=== PATIENT | female | born 1985 | race American Indian/Alaskan Native ===

== ENCOUNTER 2019-04-30 06:00 | Inpatient (IN) | payer OTHER ==
[~2019-04-30 06:00] MED LIST: EPINEPHrine/PF (1:1,000) 1 MG/1 ML INJ SUB-Q ONE; LIDOCAINE (1%) 10 MG/1 ML VIAL 20 ML MDV INFILTRATI ONE; SODIUM CHLORIDE 0.9% 1000 ML IV SOLN IJ ONE; ceFAZolin/Water 2 GM/20 ML 2 GM/20 ML SYRINGE IV NR
[2019-04-30] MEDS ORDERED: BACTERIOSTATIC SODIUM CHLORIDE 0.9% 30 ML VIAL INFILTRATI ONE (06:32)
[2019-04-30] MEDS ORDERED: LIDOCAINE 1%/EPINEPHRINE 1:100,000 VIAL (20 ML) INFILTRATI ONE ×3 (07:01→08:25)
--- NOTE | 2019-04-30 07:12 | Anesthesia Day of Surgery ---
Anesthesia Day of Surgery - Day of Surgery Patient Examined: Yes Patient H&P Reviewed: Yes Patient is NPO: Yes
[2019-04-30] MEDS ORDERED: ONDANSETRON 4 MG/2 ML INJ IV PRN ×2 (07:15→17:12)
[2019-04-30] MEDS ORDERED: HYDROmorphone 1 MG/1 ML INJ IV PRN (07:15)
--- NOTE | 2019-04-30 07:15 | Anesthesia Consultation ---
Anesthesia Consult and Med Hx Date of service: 04/30/19 - Airway Anesthetic Teeth Evaluation: Good (Braces) ROM Head & Neck: Adequate Mental/Hyoid Distance: Adequate Mallampati Class: Class II Intubation Access Assessment: Good - Pre-Operative Health Status ASA Pre-Surgery Classification: ASA2 Proposed Anesthetic Plan: General - Central Nervous System Hx Psychiatric Problems: No - Other Systems Hx Alcohol Use: Yes (SOCIALLY) Hx Substance Use: No Hx Cancer: No Hx Obesity: Yes
[2019-04-30] MEDS ORDERED: MAGNESIUM OXIDE 400 MG TAB PO NR (07:17)
[2019-04-30] MEDS ORDERED: ACETAMINOPHEN 500 MG TAB PO NR (07:17)
[2019-04-30] MEDS ORDERED: SODIUM CHLORIDE 0.9% 1000 ML 1,000 ML, EPINEPHrine/PF 1:1,000 1 MG, LIDOCAINE 1% 20 mL ... IJ ONE (07:30)
[2019-04-30] MEDS ORDERED: ENOXAPARIN 40 MG/0.4 ML INJ SUB-Q NR (07:30)
[2019-04-30] MEDS ORDERED: LIDOCAINE MPF (2%) 20 MG/1 ML VIAL 5 ML ONE (07:39)
[2019-04-30] MEDS ORDERED: PHENYLEPHRINE/NS 1,000 MCG/10 ML SYRINGE (OR USE) IV ONE (07:39)
[2019-04-30] MEDS ORDERED: dexAMETHasone 20 MG/5 ML VIAL ONE (07:39)
[2019-04-30] MEDS ORDERED: NEOSTIGMINE 10MG/10 ML INJ MDV ONE (07:39)
[2019-04-30] MEDS ORDERED: ROCURONIUM 50 MG/5 ML INJ IV ONE (07:39)
[2019-04-30] MEDS ORDERED: GLYCOPYRROLATE 0.4 MG/2 ML INJ ONE (07:39)
[2019-04-30] MEDS ORDERED: ONDANSETRON 4 MG/2 ML INJ ONE (07:39)
[2019-04-30] MEDS ORDERED: fentaNYL 250 MCG/5 ML INJ ONE (07:40)
[2019-04-30] MEDS ORDERED: PROPOFOL 200 MG/20 ML VIAL IV ONE (07:40)
[2019-04-30] MEDS: LACTATED RINGERS 1,000 ML IV SCH (07:45)
[2019-04-30] MEDS ORDERED: CELECOXIB 200 MG CAP PO NR (08:00)
[2019-04-30] MEDS ORDERED: MIDAZOLAM 2 MG/2 ML INJ IV NR (08:00)
[2019-04-30] MEDS ORDERED: GABAPENTIN 300 MG CAP PO NR (08:00)
[2019-04-30] MEDS ORDERED: SODIUM CHLORIDE 0.9% 1000 ML IV SOLN IJ ONE (08:30)
[2019-04-30] MEDS ORDERED: LIDOCAINE (1%) 10 MG/1 ML VIAL 20 ML MDV INFILTRATI ONE (08:30)
[2019-04-30] MEDS ORDERED: EPINEPHrine/PF (1:1,000) 1 MG/1 ML INJ SUB-Q ONE (08:30)
[2019-04-30] MEDS ORDERED: fentaNYL 100 MCG/2 ML INJ ONE ×5 (10:24→15:24)
[2019-04-30] MEDS ORDERED: ceFAZolin 1 GM VIAL ONE (11:59)
[2019-04-30] MEDS ORDERED: PHENYLEPHRINE 10 MG/1 ML INJ SDV IV ONE (13:00)
[2019-04-30] MEDS ORDERED: PHENYLEPHRINE 10 MG/1 ML INJ SDV ONE (14:43)
[2019-04-30] MEDS ORDERED: ESMOLOL 100 MG/10 ML INJ IV ONE (15:52)
[2019-04-30] MEDS ORDERED: ALBUTEROL 2.5 MG/3 ML NEBU IH PRN (17:12)
[2019-04-30] MEDS ORDERED: ACETAMINOPHEN 325 MG TAB PO PRN (17:12)
--- NOTE | 2019-04-30 17:15 | History and Physical Report ---
History of Present Illness Chief complaint: My heart is beating fast History of present illness: 33 YO Female with Obesity Hypoventilation admitted directly postoperatively. Pt found to have shortness of breath, tachycardia with a heart rate in the 120's. Pt seen and evaluated in the CT scan suite after undergoing CTA chest. Pt denies fever, chills, CP, Palpitations, Syncope, or recent ill contacts. Pt found to have SIRS with a leukocyte count of 25, RENÉ, as well as Bilateral Lower lobe Pneumonia on CTA of the chest. Pt admitted to medical floor, and initiated on Pneumonia protocol, as well as treated with Flagyl therapy to treat for possible aspiration pneumonia. No prior admission for review. No medication listed at time of admission for reconciliation. Past History Past Medical History: other (see HPI) Past Surgical History: Other (Plastic surgery) Social history: single. denies: smoking, alcohol abuse, prescription drug abuse Family history: hypertension Medications and Allergies Allergies Allergy/AdvReac Type Severity Reaction Status Date / Time milk Allergy Itching Verified 04/29/19 09:43 Home Medications Medication Instructions Recorded Confirmed Last Taken Type Multivit with Calcium,Iron,Min 1 each PO DAILY 04/29/19 04/29/19 Unknown History [One Daily Women's] [place]-3 Fatty Acids/Fish Oil [Fish 1 each PO DAILY 04/29/19 04/29/19 04/22/19 History Oil] Active Meds: Active Medications Acetaminophen (Tylenol) 650 mg PO Q4H PRN PRN Reason: Pain MILD(1-3)/Fever >100.5/RAMIREZ Albuterol (Proventil) 2.5 mg IH Q4HRT PRN PRN Reason: Shortness Of Breath Hydromorphone HCl (Dilaudid) 0.5 mg IV Q10MIN PRN PRN Reason: Pain , Severe (7-10) Stop: 04/30/19 22:00 Lactated Ringer's (Lactated Ringers) 1,000 mls @ 125 mls/hr IV DIRECT NAV Last Admin: 04/30/19 07:45 Dose: 125 mls/hr Documented by: Midazolam HCl (Versed) 2 mg IV PREOP NR Stop: 04/30/19 23:59 Last Admin: 04/30/19 07:50 Dose: 2 mg Documented by: Ondansetron HCl (Zofran) 4 mg IV Q8H PRN PRN Reason: Nausea And Vomiting Sodium Chloride (Sodium Chloride Flush Syringe 10 Ml) 10 ml IV BID NAV Sodium Chloride (Sodium Chloride Flush Syringe 10 Ml) 10 ml IV PRN PRN PRN Reason: LINE FLUSH Review of Systems Constitutional: other (tachycardia, shortness of breath) Ears, nose, mouth and throat: no ear pain, no ear discharge, no tinnitis, no decreased hearing Breasts: no change in shape, no swelling, no mass Cardiovascular: shortness of breath, no chest pain, no palpitations, no rapid/irregular heart beat Respiratory: no cough, no cough with sputum, no excessive sputum, no hemoptysis Gastrointestinal: no nausea, no vomiting, no diarrhea Genitourinary Female: no pelvic pain, no flank pain, no menorrhagia, no dysuria Rectal: no pain, no incontinence, no bleeding Musculoskeletal: no neck stiffness, no neck pain, no shooting arm pain, no arm numbness/tingling, no low back pain Integumentary: no rash, no pruritis, no sores, no wounds, no jaundice, no boils Neurological: no paralysis, no weakness, no parathesias, no tingling, no seizures Psychiatric: no anxiety, no memory loss, no change in sleep habits, no insomnia, no hypersomnia, no change in appetite, no change in libido Endocrine: no cold intolerance, no heat intolerance, no polyphagia, no excessive thirst, no polydipsia, no nocturia, no excessive sweating Hematologic/Lymphatic: no easy bruising, no easy bleeding, no lymphadenopathy Allergic/Immunologic: no urticaria, no allergic rhinitis, no persistent infecti ons, no anaphylaxis, no angioedema Exam - Constitutional Vitals: Temp Pulse Resp BP Pulse Ox 97.9 F 117 H 19 121/60 99 04/30/19 15:50 04/30/19 16:35 04/30/19 16:35 04/30/19 16:35 04/30/19 16:35 General appearance: Present: mild distress, obese - EENT Eyes: Present: PERRL ENT: hearing intact, clear oral mucosa - Neck Neck: Present: supple, normal ROM - Respiratory Respiratory effort: normal Respiratory: bilateral: CTA - Cardiovascular Rhythm: other (tachycardia) Heart Sounds: Present: S1 & S2. Absent: rub, click - Extremities Extremities: pulses symmetrical, No edema Peripheral Pulses: within normal limits - Abdominal General gastrointestinal: Present: soft, non-tender, non-distended, normal bowel sounds Female genitourinary: Present: normal - Integumentary Integumentary: Present: clear, warm, dry - Musculoskeletal Musculoskeletal: gait normal, strength equal bilaterally - Psychiatric Psychiatric: appropriate mood/affect, intact judgment & insight - Neurologic Neurologic: CNII-XII intact, moves all extremities Results - Labs CBC & Chem 7: 04/30/19 17:15 04/30/19 17:15 Assessment and Plan - Patient Problems (1) Pneumonia Current Visit: Yes Status: Acute Qualifiers: Laterality: bilateral Lung location: lower lobe of lung Plan to address problem: Pneumonia protocol: Admit to medical floor, IV antibiotic therapy, supplemental oxygen, nebulizer therapy, NIPPV as clinically indicated, blood culture, pulse oximetry, pulmonary toilet, CBC, CMP, chest x ray, CT chest. (2) SIRS (systemic inflammatory response syndrome) Current Visit: Yes Status: Acute Plan to address problem: CBC, CMP, Urinalysis, Chest X ray, empiric antibiotic therapy, ESR, LDH, blood cultures, IVF resuscitation therapy. (3) Tachycardia Current Visit: Yes Status: Acute Plan to address problem: IVF resuscitation therapy, Chest x ray, CTA chest to evaluate for pulmonary embolism (4) Obesity hypoventilation syndrome Current Visit: Yes Status: Acute Plan to address problem: supplemental oxygen, pulse oximetry, NIPPV as clinically indicated, ABG, incentive spirometry, (5) RENÉ (acute kidney injury) Current Visit: Yes Status: Acute Plan to address problem: IVF resuscitation therapy, monitor uop q shift, repeat bmp in am. (6) DVT prophylaxis Current Visit: Yes Status: Acute Plan to address problem: SCD to BLE while in bed,
[2019-04-30 17:34] LABS: Mean Corpuscular HGB Conc 29 % (30-34); Mean Corpuscular Volume 80 fl (79-97); Platelet Count 415 K/mm3 (140-440); Red Blood Count 3.84 M/mm3 (3.65-5.03); Red Cell Distribution Width 17.3 % (13.2-15.2)
[2019-04-30 17:46] LABS: Albumin 3.3 g/dL (3.9-5); Calcium 7.9 mg/dL (8.4-10.2)
[2019-04-30 17:47] LABS: Hematocrit 30.8 % (30.3-42.9)
--- NOTE | 2019-04-30 18:08 | Post Anesthesia Evaluation ---
- Post Anesthesia Evaluation Patient Participated: Yes Airway Patent: Yes Stable Respiratory Function: Yes Nausea/Vomiting: No Temp > 96.8F: Yes Pain Manageable: Yes Adequeate Hydration: Yes Anesthesia Complications: No Block Receding Appropriately: Not Applicable Patient on Ventilator: No Other Comments: Patient has tachycardia 120s-130s , BP , resp function stable , patient's pain under control, discussed with surgeon and hospitalist will admit to telemetry and work up for DVT/ PE to find cause for unexplained sinus tachycardia
--- NOTE | 2019-04-30 18:17 | XRay Report ---
CHEST 1 VIEW INDICATION / CLINICAL INFORMATION: POST OP TACHY PE. COMPARISON: None available. FINDINGS: SUPPORT DEVICES: None. HEART / MEDIASTINUM: No significant abnormality. LUNGS / PLEURA: No significant pulmonary or pleural abnormality. No pneumothorax. ADDITIONAL FINDINGS: No significant additional findings. IMPRESSION: 1. No acute findings. Signer Name: Manfred Hernández MD Signed: 04/30/2019 6:12 PM Workstation Name: [id number]
[2019-04-30] MEDS ORDERED: SODIUM CHLORIDE 0.9% 500 ML IVPB IV STA (18:43)
--- NOTE | 2019-04-30 18:45 | Cat Scan Report ---
CT ANGIOGRAPHY OF THE CHEST WITH INTRAVENOUS CONTRAST AND MULTIPLANAR MIP RECONSTRUCTIONS INDICATION / CLINICAL INFORMATION: Dyspnea. TECHNIQUE: Axial CT images were obtained after injection of 60 cc Omnipaque 350 IV contrast using CTA protocol. 3 plane MIP / 3D reconstructions were produced. All CT scans at this location are performed using CT dose reduction for ALARA by means of automated exposure control. COMPARISON: None available. FINDINGS: There is good opacification of the pulmonary arterial system bilaterally without intraluminal filling defect to suggest acute PTE. The thoracic aorta is normal in caliber without dissection. No coronary artery calcification is seen. There is mild to moderate patchy consolidation or atelectasis in both lower lobes posteromedially. Th e mid-upper lung zones are clear. There is a small pericardial effusion which measures water density. There is mild residual thymus. No pleural effusion or adenopathy are identified.. There are multiple gallstones without gallbladder wall thickening or bile duct dilatation. There is a small hiatal hernia. No osseous abnormality is seen.. IMPRESSION: 1. No evidence of acute PTE. 2. Patchy atelectasis or pneumonia in both lower lobes. Small pericardial effusion. 3. Cholelithiasis. 4. Small hiatal hernia. Signer Name: Steve Lock MD Signed: 04/30/2019 6:40 PM Workstation Name: [id number]
[2019-04-30] MEDS ORDERED: SODIUM CHLORIDE 0.9% 1000 ML IV SOLN IV ONE (19:05)
[2019-04-30 19:21] LABS: Anisocytosis 1+; Band Neutrophils # (Manual) 0.3 K/mm3; Eosinophils % (Manual) 0 % (0.0-4.3); Hypochromasia 1+; Poikilocytosis 1+; Total Cells Counted 100
[2019-04-30 19:22] LABS: Platelet Estimate Consistent w Auto
[2019-04-30] MEDS ORDERED: SODIUM BICARB 8.4% 50 MEQ/50 ML SYRINGE IV ONE (20:52)
[2019-04-30] MEDS ORDERED: SODIUM CHLORIDE 0.9% 500 ML 500 ML IV ONE (22:00)
[2019-04-30] MEDS: metroNIDAZOLE/NS 500 MG/100 ML 500 MG/100 ML BAG IV SCH (22:17)
[2019-05-01] MEDS: LACTATED RINGERS 1,000 ML IV SCH (05:14)
[2019-05-01] MEDS: metroNIDAZOLE/NS 500 MG/100 ML 500 MG/100 ML BAG IV SCH ×3 (05:14→22:17)
[2019-05-01 06:00] LABS: Bilirubin,Urine NEG (Negative); Blood,Urine MOD (Negative); Color,Urine Yellow (Yellow); Urobilinogen,Urine < 2.0 mg/dL (<2.0)
[2019-05-01 06:01] LABS: Bacteria,Urine 1+ /HPF (Negative); Mucus,Urine 1+ /HPF
[2019-05-01] MEDS ORDERED: MULTIVIT WITH CALCIUM IRON MIN PO SCH (10:00)
[2019-05-01] MEDS ORDERED: methOCARBAMOL 1,000 MG in SODIUM CHLORIDE 0.9% 250ML 250 ML IV ONE (10:30)
[2019-05-01] MEDS ORDERED: HYDROmorphone 1 MG/1 ML INJ IV ONE (10:30)
[2019-05-01] MEDS ORDERED: ONDANSETRON 4 MG/2 ML INJ IV PRN (13:03)
[2019-05-01] MEDS ORDERED: diphenhydrAMINE 25 MG CAP PO PRN (13:03)
--- NOTE | 2019-05-01 13:17 | Consultation ---
History of Present Illness - Reason for Consult Consult date: 05/01/19 Post Op Management - History of Present Illness Plastic Surgery Consultation This patient is a 33 year old AAF who underwent a full lipoabdominoplasty yesterday with liposuction and a tummy tuck. Her procedure was uneventful and she had a normal surgical course with successful extubation and transfer to PACU. While being monitored in recovery, she was noted to have persistent tachycardia that was not related to uncontrolled pain or dehydration (she had received 3 L of IVF intra-op, 4 L of tumescent solution and made 750cc of light yellow urine) and was unresponsive to Esmolol. The decision was made to admit/monitor overnight and rule out PE via CTA. Overnight the patient was admitted to the hospitalist service (Dr. Cook) and had issues with spontaneous voiding, for which she was catheterized. Her surgical site is appropriately tender and she was awaiting pain medication to be adjusted. Her CTA from last night shows medial lower lobe consolidation and infiltration consistent with aspiration PNA, but no evidence of PE. PNA protocol was initiated by Dr. Cook with Flagyl IV and body fluid cultures were obtained. She has been afebrile and her heart rate has normalized on the floor. She denies SOB or CP or calf pain. Patient reports that she has not been OOB to chair or ambulate. She complains of throat soreness and some nausea. Exam Afebrile, VSS Abdominal dressings and garment on, but not properly closed to allow straight catheterization. SCD's in place Incisions clean and dry, no evidence of infection. Abdominal skin flaps well perfused. Appropriate ecchymosis of the lateral waistline. No hematoma or seroma collection. DICK drains functioning with serosanguinous output. No pass miguel drainage. A/P: POD #1 s/p full lipoabdominoplasty admitted to the floor with aspiration pneumonia. 1. Leukocytosis/Lactic acidosis, Tachycardia: Due to finding of pneumonia. Tachycardia overall resolved since last night (pt's elevated heart rate this morning most likely due to inadequate analgesia). Continue PNA management per hospitalist; follow up on cultures. 2. Surgical garment must be closed completely for optimal post op management of her swelling and discomfort. Keep in place 24/7 except to shower, which she is cleared to do if desired. 3. Appropriate post surgical pain medication regimen put in place. 4. Adjusted diet to regular. 5. Increase PO Fluid intake; LR at 125cc/hr while admitted. 6. OOB minimum every 2 hours; SCD's on b/l LE while in bed. 7. Incentive spirometry 10 x per hour while awake 8. Remove catheter for trial of void. 9. Ordered lozenges for c/o throat discomfort and Zofran for c/o nausea. Will follow. Past History Past Medical History: other (see HPI) Past Surgical History: Other (Plastic surgery) Social history: single. denies: smoking, alcohol abuse, prescription drug abuse Family history: hypertension Medications and Allergies Allergies Allergy/AdvReac Type Severity Reaction Status Date / Time milk Allergy Itching Verified 04/29/19 09:43 Home Medications Medication Instructions Recorded Confirmed Last Taken Type Multivit with Calcium,Iron,Min 1 each PO DAILY 04/29/19 04/29/19 Unknown History [One Daily Women's] [place]-3 Fatty Acids/Fish Oil [Fish 1 each PO DAILY 04/29/19 04/29/19 04/22/19 History Oil] Active Meds: Active Medications Acetaminophen (Tylenol) 650 mg PO Q4H PRN PRN Reason: Pain MILD(1-3)/Fever >100.5/RAMIREZ Last Admin: 05/01/19 05:21 Dose: 650 mg Documented by: Acetaminophen/Hydrocodone Bitart ([place] 7.5/325) 2 each PO Q6H PRN PRN Reason: Pain, Moderate (4-6) Albuterol (Proventil) 2.5 mg IH Q4HRT PRN PRN Reason: Shortness Of Breath Benzocaine/Menthol (Cepacol X Strength) 1 each MM Q2HR PRN PRN Reason: Sore Throat Diphenhydramine HCl (Benadryl) 25 mg PO Q6H PRN PRN Reason: Itching Enoxaparin Sodium (Enoxaparin) 40 mg SUB-Q QDAY@2200 NAV Fish Oil (Fish Oil) 1,000 mg PO DAILY NAV Hydromorphone HCl (Dilaudid) 1 mg IM Q4H PRN PRN Reason: Pain , Severe (7-10) Lactated Ringer's (Lactated Ringers) 1,000 mls @ 125 mls/hr IV DIRECT NAV Last Admin: 05/01/19 05:14 Dose: 125 mls/hr Documented by: Levofloxacin/Dextrose (Levaquin 500mg/100ml) 500 mg in 100 mls @ 100 mls/hr IV Q24H [facility]; Protocol Last Admin: 04/30/19 21:15 Dose: 100 mls/hr Documented by: Metronidazole (Flagyl 500 Mg/100 Ml) 500 mg in 100 mls @ 100 mls/hr IV Q8HR [facility]; Protocol Last Admin: 05/01/19 05:14 Dose: 100 mls/hr Documented by: Methocarbamol (Robaxin) 750 mg PO Q8H NAV Multivitamins/Minerals (Theragran-M Tab) 1 each PO QDAY NAV Ondansetron HCl (Zofran) 4 mg IV Q8H PRN PRN Reason: Nausea And Vomiting Last Admin: 04/30/19 23:44 Dose: 4 mg Documented by: Ondansetron HCl (Zofran) 4 mg IV Q8H PRN PRN Reason: Nausea And Vomiting Sodium Chloride (Sodium Chloride Flush Syringe 10 Ml) 10 ml IV BID [facility] Last Admin: 05/01/19 10:17 Dose: 10 ml Documented by: Sodium Chloride (Sodium Chloride Flush Syringe 10 Ml) 10 ml IV PRN PRN PRN Reason: LINE FLUSH Exam - Constitutional Vitals: Temp Pulse Resp BP Pulse Ox 97.9 F 100 H 18 141/82 96 05/01/19 11:29 05/01/19 11:29 05/01/19 11:29 05/01/19 11:29 05/01/19 11:29 Results - Labs CBC & Chem 7: 04/30/19 17:15 04/30/19 17:15 Labs: Abnormal lab results 04/30/19 04/30/19 04/30/19 Range/Units 17:15 17:15 17:15 WBC 25.4 H (4.5-11.0) K/mm3 Hgb 9.0 L (10.1-14.3) gm/dl MCH 24 L (28-32) pg MCHC 29 L (30-34) % RDW 17.3 H (13.2-15.2) % Seg Neuts % (Manual) 73.0 H (40.0-70.0) % Seg Neutrophils # Man 18.5 H (1.8-7.7) K/mm3 Monocytes # (Manual) 1.0 H (0.0-0.8) K/mm3 Basophils # (Manual) 0.3 H (0.0-0.1) K/mm3 D-Dimer 308.28 H (0-234) ng/mlDDU POC ABG pH (7.35-7.45) POC ABG pO2 (80-105) Potassium 6.0 H (3.6-5.0) mmol/L Chloride 107.5 H (98-107) mmol/L Carbon Dioxide 14 L (22-30) mmol/L Creatinine 1.3 H (0.7-1.2) mg/dL Glucose 238 H (65-100) mg/dL Lactic Acid (0.7-2.0) mmol/L Calcium 7.9 L (8.4-10.2) mg/dL Total Protein 5.5 L (6.3-8.2) g/dL Albumin 3.3 L (3.9-5) g/dL Ur Specific [place] (1.003-1.030) 04/30/19 04/30/19 04/30/19 Range/Units 18:09 20:18 21:46 WBC (4.5-11.0) K/mm3 Hgb (10.1-14.3) gm/dl MCH (28-32) pg MCHC (30-34) % RDW (13.2-15.2) % Seg Neuts % (Manual) (40.0-70.0) % Seg Neutrophils # Man (1.8-7.7) K/mm3 Monocytes # (Manual) (0.0-0.8) K/mm3 Basophils # (Manual) (0.0-0.1) K/mm3 D-Dimer (0-234) ng/mlDDU POC ABG pH 7.215 L 7.216 L (7.35-7.45) POC ABG pO2 129 H 130 H (80-105) Potassium (3.6-5.0) mmol/L Chloride (98-107) mmol/L Carbon Dioxide (22-30) mmol/L Creatinine (0.7-1.2) mg/dL Glucose (65-100) mg/dL Lactic Acid 9.30 H* (0.7-2.0) mmol/L Calcium (8.4-10.2) mg/dL Total Protein (6.3-8.2) g/dL Albumin (3.9-5) g/dL Ur Specific [place] (1.003-1.030) 05/01/19 05/01/19 Range/Units 05:30 07:48 WBC (4.5-11.0) K/mm3 Hgb (10.1-14.3) gm/dl MCH (28-32) pg MCHC (30-34) % RDW (13.2-15.2) % Seg Neuts % (Manual) (40.0-70.0) % Seg Neutrophils # Man (1.8-7.7) K/mm3 Monocytes # (Manual) (0.0-0.8) K/mm3 Basophils # (Manual) (0.0-0.1) K/mm3 D-Dimer (0-234) ng/mlDDU POC ABG pH (7.35-7.45) POC ABG pO2 (80-105) Potassium (3.6-5.0) mmol/L Chloride (98-107) mmol/L Carbon Dioxide (22-30) mmol/L Creatinine (0.7-1.2) mg/dL Glucose (65-100) mg/dL Lactic Acid 5.80 H* (0.7-2.0) mmol/L Calcium (8.4-10.2) mg/dL Total Protein (6.3-8.2) g/dL Albumin (3.9-5) g/dL Ur Specific [place] 1.042 H (1.003-1.030)
[2019-05-01] MEDS: MULTIVITAMINS,THER W-MINERALS TAB PO SCH (13:42)
[2019-05-01] MEDS: BENZOCAINE/MENTHOL LOZENGE MM PRN ×2 (13:43→19:50)
[2019-05-01] MEDS: OMEGA-3 FATTY ACIDS/FISH OIL 1 GRAM CAP PO SCH (13:43)
[2019-05-01] MEDS: HYDROcodone/ACETAMINOPHEN 7.5-325MG TAB PO PRN (13:45)
[2019-05-01] MEDS: HYDROmorphone 1 MG/1 ML INJ IM PRN ×2 (16:16→20:46)
[2019-05-01] MEDS: ENOXAPARIN 40 MG/0.4 ML INJ SUB-Q SCH (22:15)
[2019-05-02] MEDS: HYDROmorphone 1 MG/1 ML INJ IM PRN (01:42)
[2019-05-02] MEDS: HYDROcodone/ACETAMINOPHEN 7.5-325MG TAB PO PRN ×3 (06:16→18:30)
[2019-05-02] MEDS: metroNIDAZOLE/NS 500 MG/100 ML 500 MG/100 ML BAG IV SCH ×3 (06:30→21:07)
--- NOTE | 2019-05-02 07:14 | Progress Note ---
Assessment and Plan (1) Pneumonia Current Visit: Yes Status: Acute Qualifiers: Laterality: bilateral Lung location: lower lobe of lung Plan to address problem: COnt IV Abx (2) SIRS (systemic inflammatory response syndrome) Current Visit: Yes Status: Acute Plan to address problem: Has Leukocytosis,Temp, Tachycardia ,tachypnea meeting SIRS criteria (3) Tachycardia Current Visit: Yes Status: Acute Plan to address problem: IVF resuscitation therapy, Chest x ray, CTA chest to evaluate for pulmonary embolism (4) Obesity hypoventilation syndrome Current Visit: Yes Status: Acute Plan to address problem: supplemental oxygen, pulse oximetry, NIPPV as clinically indicated, ABG, incentive spirometry, (5) RENÉ (acute kidney injury) Current Visit: Yes Status: Acute Plan to address problem: IVF resuscitation therapy, monitor uop q shift, repeat bmp in am. (6) DVT prophylaxis Current Visit: Yes Status: Acute Plan to address problem: SCD to BLE while in bed, Subjective Date of service: 05/01/19 Principal diagnosis: Aspiration Pneumonia Interval history: 33 YO Female with Obesity Hypoventilation admitted directly postoperatively. Pt found to have shortness of breath, tachycardia with a heart rate in the 120's. Pt seen and evaluated in the CT scan suite after undergoing CTA chest. Pt denies fever, chills, CP, Palpitations, Syncope, or recent ill contacts. Pt found to have SIRS with a leukocyte count of 25, RENÉ, as well as Bilateral Lower lobe Pneumonia on CTA of the chest. Pt admitted to medical floor, and initiated on Pneumonia protocol, as well as treated with Flagyl therapy to treat for possible aspiration pneumonia. Objective - Constitutional Vitals: Vital Signs - 12hr 05/01/19 05/01/19 05/02/19 22:00 23:33 04:21 Temperature 97.8 F Pulse Rate 126 H 121 H Respiratory 17 Rate Blood Pressure 164/102 [Right] O2 Sat by Pulse 99 99 94 Oximetry 05/02/19 05:24 Temperature 97.9 F Pulse Rate 122 H Respiratory 18 Rate Blood Pressure 132/85 [Right] O2 Sat by Pulse 95 Oximetry General appearance: Present: mild distress, well-nourished - EENT Eyes: PERRL, EOM intact ENT: hearing intact, clear oral mucosa Ears: bilateral: normal - Neck Neck: supple, normal ROM - Respiratory Respiratory effort: normal Respiratory: bilateral: CTA, rhonchi - Breasts Breasts: normal - Cardiovascular Heart rate: 78 Rhythm: regular Heart Sounds: Present: S1 & S2. Absent: gallop, rub Extremities: no ischemia, pulses intact, No edema, normal color, Full ROM - Gastrointestinal General gastrointestinal: Present: soft, non-tender, non-distended, normal bowel sounds - Genitourinary Female genitourinary: deferred, normal - Integumentary Integumentary: clear, warm, dry - Musculoskeletal Musculoskeletal: 1, strength equal bilaterally - Neurologic Neurologic: moves all extremities - Psychiatric Psychiatric: memory intact, appropriate mood/affect, intact judgment & insight - Labs CBC & Chem 7: 04/30/19 17:15 04/30/19 17:15 Labs: Abnormal lab results 05/01/19 05/01/19 Range/Units 07:48 23:18 Lactic Acid 5.80 H* 3.60 H* (0.7-2.0) mmol/L
--- NOTE | 2019-05-02 10:04 | Progress Note ---
Subjective Date of service: 05/02/19 Principal diagnosis: Aspiration Pneumonia Interval history: Plastic Surgery Progress Patient is doing much better today, OOB, ambulating in the hallway. She has voided spontaneously and is doing her own drain care. She is tolerating PO, mostly broth and clear liquids as she does not have an appetite yet. Denies fever or chills. As per the patient she is eligible for d/c and she wants to go home soon. Afebrile, still tachycardic in 120's, stable on Room Air Abdomen soft, appropriately tender, incisions clean and dry, drains functional with serosanguinous output at appropriate levels. No hematoma or seroma, ecchymosis appropriate. Lactate trending downwards. A/P POD #2 s/p Full lipoabdominoplasty now with aspiration pneumonia. Continue PNA mgmt protocol per Hospitalist team. Patient cleared for discharge from Plastics standpoint. She desires first thing in the morning d/c, which is fine with me. Continue SCDs in bed, frequent ambulation. DICK drain care min q shift Increase PO fluid intake Analgesia: Continue Robaxin, hydrocodone, ibuprofen prn. Follow up one week as scheduled. Objective - Constitutional Vitals: Vital Signs - 12hr 05/01/19 05/01/19 05/02/19 22:00 23:33 04:21 Temperature 97.8 F Pulse Rate 126 H 121 H Respiratory 17 Rate Blood Pressure Blood Pressure 164/102 [Right] O2 Sat by Pulse 99 99 94 Oximetry 05/02/19 05/02/19 05:24 07:58 Temperature 97.9 F 97.9 F Pulse Rate 122 H 113 H Respiratory 18 18 Rate Blood Pressure 131/87 Blood Pressure 132/85 [Right] O2 Sat by Pulse 95 96 Oximetry - Labs CBC & Chem 7: 04/30/19 17:15 04/30/19 17:15 Labs: Abnormal lab results 05/01/19 Range/Units 23:18 Lactic Acid 3.60 H* (0.7-2.0) mmol/L Medications & Allergies - Medications Allergies/Adverse Reactions: Allergies milk Allergy (Verified 04/29/19 09:43) Itching Home Medications: Home Medications Medication Instructions Recorded Confirmed Last Taken Type Multivit with Calcium,Iron,Min 1 each PO DAILY 04/29/19 04/29/19 Unknown History [One Daily Women's] [place]-3 Fatty Acids/Fish Oil [Fish 1 each PO DAILY 04/29/19 04/29/19 04/22/19 History Oil] Active Medications: Generic Name Dose Route Start Last Admin Trade Name Freq PRN Reason Stop Dose Admin Acetaminophen 650 mg 04/30/19 17:12 05/01/19 05:21 Tylenol PO 650 mg Q4H PRN Administration Pain MILD(1-3)/Fever >100.5/RAMIREZ Acetaminophen/Hydrocodone Bitart 2 each 05/01/19 12:30 05/02/19 06:16 [place] 7.5/325 PO 2 each Q6H PRN Administration Pain, Moderate (4-6) Albuterol 2.5 mg 04/30/19 17:12 Proventil IH Q4HRT PRN Shortness Of Breath Benzocaine/Menthol 1 each 05/01/19 13:01 05/01/19 19:50 Cepacol X Strength MM 1 each Q2HR PRN Administration Sore Throat Diphenhydramine HCl 25 mg 05/01/19 13:03 05/02/19 01:41 Benadryl PO 25 mg Q6H PRN Administration Itching Enoxaparin Sodium 40 mg 05/01/19 22:00 05/01/19 22:15 Enoxaparin SUB-Q 40 mg QDAY@2200 NAV Administration Fish Oil 1,000 mg 05/01/19 10:00 05/01/19 13:43 Fish Oil PO 1,000 mg DAILY NAV Administration Hydromorphone HCl 1 mg 05/01/19 12:31 05/02/19 01:42 Dilaudid IM 1 mg Q4H PRN Administration Pain , Severe (7-10) Lactated Ringer's 1,000 mls @ 125 mls/hr 04/30/19 08:00 05/01/19 05:14 Lactated Ringers IV 125 mls/hr DIRECT NAV Administration Metronidazole 500 mg in 100 mls @ 100 mls/hr 04/30/19 20:00 05/02/19 06:30 Flagyl 500 Mg/100 Ml IV 100 mls/hr Q8HR NAV Administration Protocol Levofloxacin/Dextrose 750 mg in 150 mls @ 100 mls/hr 05/01/19 22:00 05/01/19 23:26 Levaquin 750mg/150ml IV 100 mls/hr Q24HR@2200 NAV Administration Methocarbamol 750 mg 05/01/19 14:00 05/02/19 06:16 Robaxin PO 750 mg Q8HR NAV Administration Multivitamins/Minerals 1 each 05/01/19 10:00 05/01/19 13:42 Theragran-M Tab PO 1 each QDAY NAV Administration Ondansetron HCl 4 mg 04/30/19 17:12 04/30/19 23:44 Zofran IV 4 mg Q8H PRN Administration Nausea And Vomiting Ondansetron HCl 4 mg 05/01/19 13:03 Zofran IV Q8H PRN Nausea And Vomiting Sodium Chloride 10 ml 04/30/19 22:00 05/01/19 23:27 Sodium Chloride Flush Syringe 10 Ml IV 10 ml BID NAV Administration Sodium Chloride 10 ml 04/30/19 17:12 Sodium Chloride Flush Syringe 10 Ml IV PRN PRN LINE FLUSH
[2019-05-02] MEDS: methOCARBAMOL 1,000 MG in SODIUM CHLORIDE 0.9% 250ML 250 ML IV SCH ×2 (11:17→22:34)
[2019-05-02] MEDS: MULTIVITAMINS,THER W-MINERALS TAB PO SCH (11:17)
--- NOTE | 2019-05-02 12:19 | Progress Note ---
Assessment and Plan Assessment and plan: Pneumonia COnt IV Abx SIRS (systemic inflammatory response syndrome) Has Leukocytosis,Temp, Tachycardia ,tachypnea meeting SIRS criteria Tachycardia IVF resuscitation therapy, Chest x ray, CTA chest negative for pulmonary embolism Obesity hypoventilation syndrome supplemental oxygen, pulse oximetry, NIPPV as clinically indicated, ABG, incentive spirometry, RENÉ (acute kidney injury) IVF resuscitation therapy, monitor uop q shift, repeat bmp in am. History Interval history: No new issues overnight. Hospitalist Physical - Constitutional Vitals: Temp Pulse Resp BP Pulse Ox 97.9 F 113 H 18 131/87 96 05/02/19 07:58 05/02/19 07:58 05/02/19 07:58 05/02/19 07:58 05/02/19 07:58 General appearance: Present: no acute distress, well-nourished - EENT Eyes: Present: PERRL, EOM intact ENT: hearing intact, clear oral mucosa, dentition normal - Neck Neck: Present: supple, normal ROM - Respiratory Respiratory effort: normal Respiratory: bilateral: CTA - Cardiovascular Rhythm: regular Heart Sounds: Present: S1 & S2. Absent: gallop, rub - Extremities Extremities: no ischemia, No edema, Full ROM - Abdominal General gastrointestinal: soft, non-tender, non-distended, normal bowel sounds - Integumentary Integumentary: Present: clear, warm, dry - Neurologic Neurologic: CNII-XII intact, moves all extremities Results - Labs CBC & Chem 7: 04/30/19 17:15 04/30/19 17:15 Labs: Laboratory Last Values WBC 25.4 K/mm3 (4.5-11.0) H 04/30/19 17:15 RBC 3.84 M/mm3 (3.65-5.03) 04/30/19 17:15 Hgb 9.0 gm/dl (10.1-14.3) L 04/30/19 17:15 Hct 30.8 % (30.3-42.9) 04/30/19 17:15 MCV 80 fl (79-97) 04/30/19 17:15 MCH 24 pg (28-32) L 04/30/19 17:15 MCHC 29 % (30-34) L 04/30/19 17:15 RDW 17.3 % (13.2-15.2) H 04/30/19 17:15 Plt Count 415 K/mm3 (140-440) 04/30/19 17:15 Add Manual Diff Complete 04/30/19 17:15 Total Counted 100 04/30/19 17:15 Seg Neuts % (Manual) 73.0 % (40.0-70.0) H 04/30/19 17:15 Band Neutrophils % 1.0 % 04/30/19 17:15 Lymphocytes % (Manual) 21.0 % (13.4-35.0) 04/30/19 17:15 Reactive Lymphs % (Man) 0 % 04/30/19 17:15 Monocytes % (Manual) 4.0 % (0.0-7.3) 04/30/19 17:15 Eosinophils % (Manual) 0 % (0.0-4.3) 04/30/19 17:15 Basophils % (Manual) 1.0 % (0.0-1.8) 04/30/19 17:15 Metamyelocytes % 0 % 04/30/19 17:15 Myelocytes % 0 % 04/30/19 17:15 Promyelocytes % 0 % 04/30/19 17:15 Blast Cells % 0 % 04/30/19 17:15 Nucleated RBC % Not Reportable 04/30/19 17:15 Seg Neutrophils # Man 18.5 K/mm3 (1.8-7.7) H 04/30/19 17:15 Band Neutrophils # 0.3 K/mm3 04/30/19 17:15 Lymphocytes # (Manual) 5.3 K/mm3 (1.2-5.4) 04/30/19 17:15 Abs React Lymphs (Man) 0.0 K/mm3 04/30/19 17:15 Monocytes # (Manual) 1.0 K/mm3 (0.0-0.8) H 04/30/19 17:15 Eosinophils # (Manual) 0.0 K/mm3 (0.0-0.4) 04/30/19 17:15 Basophils # (Manual) 0.3 K/mm3 (0.0-0.1) H 04/30/19 17:15 Metamyelocytes # 0.0 K/mm3 04/30/19 17:15 Myelocytes # 0.0 K/mm3 04/30/19 17:15 Promyelocytes # 0.0 K/mm3 04/30/19 17:15 Blast Cells # 0.0 K/mm3 04/30/19 17:15 WBC Morphology Not Reportable 04/30/19 17:15 Hypersegmented Neuts Not Reportable 04/30/19 17:15 Hyposegmented Neuts Not Reportable 04/30/19 17:15 Hypogranular Neuts Not Reportable 04/30/19 17:15 Smudge Cells Not Reportable 04/30/19 17:15 Toxic Granulation Not Reportable 04/30/19 17:15 Toxic Vacuolation Not Reportable 04/30/19 17:15 Dohle Bodies Not Reportable 04/30/19 17:15 Pelger-Huet Anomaly Not Reportable 04/30/19 17:15 Ivis Rods Not Reportable 04/30/19 17:15 Platelet Estimate Consistent w auto 04/30/19 17:15 Clumped Platelets Not Reportable 04/30/19 17:15 Plt Clumps, EDTA Not Reportable 04/30/19 17:15 Large Platelets Not Reportable 04/30/19 17:15 Giant Platelets Not Reportable 04/30/19 17:15 Platelet Satelliting Not Reportable 04/30/19 17:15 Plt Morphology Comment Not Reportable 04/30/19 17:15 RBC Morphology Not Reportable 04/30/19 17:15 Dimorphic RBCs Not Reportable 04/30/19 17:15 Polychromasia Not Reportable 04/30/19 17:15 Hypochromasia 1+ 04/30/19 17:15 Poikilocytosis 1+ 04/30/19 17:15 Anisocytosis 1+ 04/30/19 17:15 Microcytosis Not Reportable 04/30/19 17:15 Macrocytosis Not Reportable 04/30/19 17:15 Spherocytes Not Reportable 04/30/19 17:15 Pappenheimer Bodies Not Reportable 04/30/19 17:15 Sickle Cells Not Reportable 04/30/19 17:15 Target Cells Not Reportable 04/30/19 17:15 Tear Drop Cells Not Reportable 04/30/19 17:15 Ovalocytes Not Reportable 04/30/19 17:15 Helmet Cells Not Reportable 04/30/19 17:15 Cuellar-Twain Bodies Not Reportable 04/30/19 17:15 [place] Rings Not Reportable 04/30/19 17:15 Nilesh Cells Not Reportable 04/30/19 17:15 Bite Cells Not Reportable 04/30/19 17:15 Crenated Cell Not Reportable 04/30/19 17:15 Elliptocytes Not Reportable 04/30/19 17:15 Acanthocytes (Spur) Not Reportable 04/30/19 17:15 Rouleaux Not Reportable 04/30/19 17:15 Hemoglobin C Crystals Not Reportable 04/30/19 17:15 Schistocytes Not Reportable 04/30/19 17:15 Malaria parasites Not Reportable 04/30/19 17:15 ESR 19 mm/Hr (0-20) 04/30/19 20:18 Joshua Bodies Not Reportable 04/30/19 17:15 Hem Pathologist Commnt No 04/30/19 17:15 D-Dimer 308.28 ng/mlDDU (0-234) H 04/30/19 17:15 POC ABG pH 7.216 (7.35-7.45) L 04/30/19 21:46 POC ABG pCO2 36.5 (35-45) 04/30/19 21:46 POC ABG pO2 130 (80-105) H 04/30/19 21:46 POC ABG HCO3 14.8 (22-26 mml/L) 04/30/19 21:46 POC ABG Total CO2 16 (23-27mmol/L) 04/30/19 21:46 POC ABG O2 Sat 98 04/30/19 21:46 POC ABG Base Excess -13 ((-2) - (+3)mmol/L) 04/30/19 21:46 FiO2 28 % 04/30/19 21:46 Sodium 138 mmol/L (137-145) 04/30/19 17:15 Potassium 6.0 mmol/L (3.6-5.0) H 04/30/19 17:15 Chloride 107.5 mmol/L (98-107) H 04/30/19 17:15 Carbon Dioxide 14 mmol/L (22-30) L 04/30/19 17:15 Anion Gap 23 mmol/L 04/30/19 17:15 BUN 15 mg/dL (7-17) 04/30/19 17:15 Creatinine 1.3 mg/dL (0.7-1.2) H 04/30/19 17:15 Estimated GFR 57 ml/min 04/30/19 17:15 BUN/Creatinine Ratio 12 % 04/30/19 17:15 Glucose 238 mg/dL (65-100) H 04/30/19 17:15 Hemoglobin A1c 5.4 % (4-6) 04/30/19 20:18 Lactic Acid 3.60 mmol/L (0.7-2.0) H* 05/01/19 23:18 Calcium 7.9 mg/dL (8.4-10.2) L 04/30/19 17:15 Total Bilirubin 0.60 mg/dL (0.1-1.2) 04/30/19 17:15 AST 17 units/L (5-40) 04/30/19 17:15 ALT 12 units/L (7-56) 04/30/19 17:15 Alkaline Phosphatase 51 units/L (35-129) 04/30/19 17:15 Lactate Dehydrogenase 114 units/L (91-180) 04/30/19 20:31 Total Protein 5.5 g/dL (6.3-8.2) L 04/30/19 17:15 Albumin 3.3 g/dL (3.9-5) L 04/30/19 17:15 Albumin/Globulin Ratio 1.5 % 04/30/19 17:15 Urine Color Yellow (Yellow) 05/01/19 05:30 Urine Turbidity Slightly-cloudy (Clear) 05/01/19 05:30 Urine pH 5.0 (5.0-7.0) 05/01/19 05:30 Ur Specific [place] 1.042 (1.003-1.030) H 05/01/19 05:30 Urine Protein 30 mg/dl mg/dL (Negative) 05/01/19 05:30 Urine Glucose (UA) Neg mg/dL (Negative) 05/01/19 05:30 Urine Ketones Tr mg/dL (Negative) 05/01/19 05:30 Urine Blood Mod (Negative) 05/01/19 05:30 Urine Nitrite Neg (Negative) 05/01/19 05:30 Urine Bilirubin Neg (Negative) 05/01/19 05:30 Urine Urobilinogen < 2.0 mg/dL (<2.0) 05/01/19 05:30 Ur Leukocyte Esterase Neg (Negative) 05/01/19 05:30 Urine WBC (Auto) 3.0 /HPF (0.0-6.0) 05/01/19 05:30 Urine RBC (Auto) 1.0 /HPF (0.0-6.0) 05/01/19 05:30 U Epithel Cells (Auto) 1.0 /HPF (0-13.0) 05/01/19 05:30 Urine Bacteria (Auto) 1+ /HPF (Negative) 05/01/19 05:30 Urine Mucus 1+ /HPF 05/01/19 05:30 Active Medications - Current Medications Current Medications: Generic Name Dose Route Start Last Admin Trade Name Freq PRN Reason Stop Dose Admin Acetaminophen 650 mg 04/30/19 17:12 05/01/19 05:21 Tylenol PO 650 mg Q4H PRN Administration Pain MILD(1-3)/Fever >100.5/RAMIREZ Acetaminophen/Hydrocodone Bitart 2 each 05/01/19 12:30 05/02/19 06:16 Hugo 7.5/325 PO 2 each Q6H PRN Administration Pain, Moderate (4-6) Albuterol 2.5 mg 04/30/19 17:12 Proventil IH Q4HRT PRN Shortness Of Breath Benzocaine/Menthol 1 each 05/01/19 13:01 05/01/19 19:50 Cepacol X Strength MM 1 each Q2HR PRN Administration Sore Throat Diphenhydramine HCl 25 mg 05/01/19 13:03 05/02/19 01:41 Benadryl PO 25 mg Q6H PRN Administration Itching Enoxaparin Sodium 40 mg 05/01/19 22:00 05/01/19 22:15 Enoxaparin SUB-Q 40 mg QDAY@2200 NAV Administration Fish Oil 1,000 mg 05/01/19 10:00 05/01/19 13:43 Fish Oil PO 1,000 mg DAILY NAV Administration Hydromorphone HCl 1 mg 05/01/19 12:31 05/02/19 01:42 Dilaudid IM 1 mg Q4H PRN Administration Pain , Severe (7-10) Lactated Ringer's 1,000 mls @ 125 mls/hr 04/30/19 08:00 05/01/19 05:14 Lactated Ringers IV 125 mls/hr DIRECT NAV Administration Metronidazole 500 mg in 100 mls @ 100 mls/hr 04/30/19 20:00 05/02/19 06:30 Flagyl 500 Mg/100 Ml IV 100 mls/hr Q8HR NAV Administration Protocol Levofloxacin/Dextrose 750 mg in 150 mls @ 100 mls/hr 05/01/19 22:00 05/01/19 23:26 Levaquin 750mg/150ml IV 100 mls/hr Q24HR@2200 NAV Administration Methocarbamol 1,000 mg/ Sodium 260 mls @ 250 mls/hr 05/02/19 10:30 05/02/19 1 1:17 Chloride IV 250 mls/hr Q8HR NAV Administration Multivitamins/Minerals 1 each 05/01/19 10:00 05/02/19 11:17 Theragran-M Tab PO 1 each QDAY NAV Administration Ondansetron HCl 4 mg 05/01/19 13:03 Zofran IV Q8H PRN Nausea And Vomiting Sodium Chloride 10 ml 04/30/19 22:00 05/01/19 23:27 Sodium Chloride Flush Syringe 10 Ml IV 10 ml BID NAV Administration Sodium Chloride 10 ml 04/30/19 17:12 Sodium Chloride Flush Syringe 10 Ml IV PRN PRN LINE FLUSH
[2019-05-02] MEDS ORDERED: SODIUM CHLORIDE 0.9% 1000 ML 1,000 ML IV SCH (12:30)
[2019-05-02] MEDS: OMEGA-3 FATTY ACIDS/FISH OIL 1 GRAM CAP PO SCH (14:35)
[2019-05-02 15:20] LABS: Basophils % (Auto) 0.4 % (0.0-1.8); Eosinophils % (Auto) 0.1 % (0.0-4.3); Hematocrit 21.1 % (30.3-42.9); Hemoglobin 6.8 gm/dl (10.1-14.3); Lymphocytes # (Auto) 2.8 K/mm3 (1.2-5.4); Lymphocytes % (Auto) 26.4 % (13.4-35.0); Mean Corpuscular HGB Conc 32 % (30-34); Mean Corpuscular Volume 74 fl (79-97); Monocytes # (Auto) 0.8 K/mm3 (0.0-0.8); Monocytes % (Auto) 7.3 % (0.0-7.3); Platelet Count 301 K/mm3 (140-440); Red Blood Count 2.84 M/mm3 (3.65-5.03); Red Cell Distribution Width 16.2 % (13.2-15.2)
[2019-05-02 15:33] LABS: BUN/Creatinine Ratio 17; Blood Urea Nitrogen 10 mg/dL (7-17); Hemolysis Index 0
[2019-05-02] MEDS: ENOXAPARIN 40 MG/0.4 ML INJ SUB-Q SCH (21:08)
[2019-05-03] MEDS: HYDROcodone/ACETAMINOPHEN 7.5-325MG TAB PO PRN ×2 (04:00→09:24)
[2019-05-03] MEDS: metroNIDAZOLE/NS 500 MG/100 ML 500 MG/100 ML BAG IV SCH (05:34)
[2019-05-03] MEDS: methOCARBAMOL 1,000 MG in SODIUM CHLORIDE 0.9% 250ML 250 ML IV SCH (05:35)
[2019-05-03 07:03] LABS: Basophils # (Auto) 0.1 K/mm3 (0.0-0.1); Basophils % (Auto) 0.5 % (0.0-1.8); Eosinophils % (Auto) 0.4 % (0.0-4.3); Hematocrit 23.9 % (30.3-42.9); Hemoglobin 7.6 gm/dl (10.1-14.3); Lymphocytes % (Auto) 30.5 % (13.4-35.0); Mean Corpuscular HGB Conc 32 % (30-34); Mean Corpuscular Volume 75 fl (79-97); Monocytes # (Auto) 0.4 K/mm3 (0.0-0.8); Monocytes % (Auto) 4.5 % (0.0-7.3); Platelet Count 308 K/mm3 (140-440); Red Blood Count 3.18 M/mm3 (3.65-5.03); Red Cell Distribution Width 16.2 % (13.2-15.2)
[2019-05-03] MEDS: OMEGA-3 FATTY ACIDS/FISH OIL 1 GRAM CAP PO SCH (09:28)
[2019-05-03] MEDS ORDERED: SODIUM CHLORIDE 0.9% 500 ML 500 ML IV SCH (09:52)
--- NOTE | 2019-05-03 09:54 | Discharge Summary ---
Providers - Providers Date of Admission: 04/30/19 17:13 Date of discharge: 05/03/19 Attending physician: MARTINA OSORIO 04/30/19 17:15 Consult to Physician [CONS] Routine Comment: Consulting Provider: DESTINY SHAVER Physician Instructions: Reason For Exam: Postop evaluation Primary care physician: BRAND EXECUTIVE Hospitalization Reason for admission: SIRS Hospital course: 33 YO Female with Obesity Hypoventilation admitted directly postoperatively. Pt found to have shortness of breath, tachycardia with a heart rate in the 120's. Pt found to have Sepsis, present on admission with a leukocyte count of 25, RENÉ, as well as Bilateral Lower lobe Pneumonia on CTA of the chest. Pt admitted to medical floor, and initiated on Pneumonia protocol, as well as treated with Flagyl therapy to treat for possible aspiration pneumonia. The patient also had lactic acid elevated on admission of 9.3. Patient has significant improvement after administration of IV antibiotics. Lactic acid and WBC trended back down to normal. Blood cultures were found to be negative 48 hours. However, prior to discharge patient did have some anemia likely related to blood loss from her recent surgery. Will receive 2 units of PRBCs and discharged after transfusion is completed. Dedicated discharge time 32 minutes. Disposition: DC-01 TO HOME OR SELFCARE Time spent for discharge: 32 - Discharge Diagnoses (1) Sepsis Status: Acute (2) RENÉ (acute kidney injury) Status: Acute (3) Obesity hypoventilation syndrome Status: Acute (4) Pneumonia Status: Acute Qualifiers: Laterality: bilateral Lung location: lower lobe of lung Core Measure Documentation - Palliative Care Palliative Care/ Comfort Measures: Not Applicable - Core Measures Any of the following diagnoses?: none Exam - Constitutional Vitals: Temp Pulse Resp BP Pulse Ox 97.6 F 94 H 20 153/101 98 05/03/19 07:32 05/03/19 07:32 05/03/19 07:32 05/03/19 07:32 05/03/19 07:32 General appearance: Present: no acute distress, well-nourished - EENT Eyes: Present: PERRL ENT: hearing intact, clear oral mucosa - Neck Neck: Present: supple, normal ROM - Respiratory Respiratory effort: normal Respiratory: bilateral: CTA - Cardiovascular Heart Sounds: Present: S1 & S2. Absent: rub, click - Extremities Extremities: pulses symmetrical, No edema Peripheral Pulses: within normal limits - Abdominal General gastrointestinal: Present: soft, non-tender, non-distended, normal bowel sounds Female genitourinary: Present: normal - Integumentary Integumentary: Present: clear, warm, dry - Musculoskeletal Musculoskeletal: gait normal, strength equal bilaterally - Psychiatric Psychiatric: appropriate mood/affect, intact judgment & insight - Neurologic Neurologic: CNII-XII intact, moves all extremities Plan Activity: advance as tolerated Weight Bearing Status: Weight Bear as Tolerated Diet: other (per surgeons instructions) Follow up with: PRIMARY MD JOHNNIE [Primary Care Provider] - 7 Days DESTINY SHAVER MD [Staff Physician] - 7 Days Forms: Outpatient Surgery DC Inst. Prescriptions: levoFLOXacin [Levaquin] 750 mg PO QDAY #10 tablet HYDROcodone/APAP 7.5-325 [[place] 7.5-325 mg TAB] 2 each PO Q6H PRN #12 tablet PRN Reason: Pain, Moderate (4-6)
[2019-05-03 11:19] VITALS: BP 150/90
[2019-05-03] MEDS: MULTIVITAMINS,THER W-MINERALS TAB PO SCH (21:23)
--- NOTE | 2019-05-07 07:42 | Operative Report ---
Operative Report Operative Report: Plastic Surgery Operative Note Preoperative Diagnosis: Unacceptable Cosmetic appearance Postoperative Diagnosis: Same Procedure: Full lipoabdominoplasty with liposuction of the upper and lower abdomen, full waistline. Anesthesia: General endotracheal Surgeon: Arleth Connolly MD Pattern Data Operator: Savi Lopez CFA EBL: 200 cc Indications: This patient is a 33 year old AAF who presented with complaint of abdominal pannus, adiposity of the central abdomen and "muffin top" that she has had for years and not been able to lose despite diet and exercise. She desires a flat midsection and waistline definition. We discussed the benefits as well as the risks of lipoabdominoplasty, including but not limited to hematoma, seroma, infection, bleeding, scarring, keloids, pulmonary embolus and the need for further surgery. The patient understood and accepted these risks and decided to move forward with surgery. Informed consent was obtained. Procedure: After review of pertinent history and physical exam findings the patient was brought into the operating room and placed supine on the OR table. After induction of adequate general endotracheal anesthesia, the abdomen was prepped and draped in the usual sterile surgical fashion. Using an 11 blade, cannula entry incisions were made in the lower abdomen, and 4 L of tumescent solution was infiltrated into the tissues of the abdomen and flanks. Power assisted liposcution was performed until aspirate was blood-tinged, for a total of 7.4 L, 4.75 L of which was pure fat. We then began the tummy tuck portion of the procedure, creating a lower abdominal incision using a 10 blade, which was carried through subcutaneous tissue using the electrocautery. This dissection along the rectus fascia was carried cephalad to the xiphoid process, after which point rectus diastasis (measuring 4 cm at its widest) was repaired using 0 PDO Quill suture. The bed was then placed in a beach chair position and the lower abdominal pannus was marked and sharply excised. A 19 Fr Alberto drain was placed and secured with a 2-0 Nylon suture and we began closure of her incisions in 3 layers beginning with a PDO Quill suture to approximate Nikunj's fascia follwed by skin closure with 3-0 Monoderm Quill in 2 layers. The umbilicus was delivered through the abdominal skin flap and secured with 2-0 Monocryl and 4-0 subcuticular sutures. All incisions were then sealed with Dermabond. ABD's were then secured over the incisions with paper tape. Patient was then turned to the prone position and properly cushioned. We then prepped and draped once again and, through cannula incisions along the lower back, performed power assisted liposuction until the lipoaspirate became blood tinged. These incisions were then closed with 4-0 Monocryl. The patient was then transfered back to the supine position and placed in her compression garment. She was then awakened from general anesthesia and transferred to PACU in stable condition. All sponge, needle and instrument counts were correct at the end of the case. In the recovery room she was noted to be tachycardic with oxygen saturation levels noted to be fluctuating around the mid 90's on room air, no distress or other symptoms. Her tachycardia was unresponsive to adequate pain management, fluid hydration and labetalol. The decision was made to hold discharge and call a consultation for internal medicine to do a workup for possible etiologies including pulmonary embolus. She will be admitted to the hospitalist service and her imaging studies and lab tests are pending.
== END 2019-05-03 14:45 | disposition home or self-care (01) | DRG 853 ==
LOC: OR 06:00 → OBSVTOIN 17:13 → 3B-SURG 17:13
PROVIDERS: ADMIT Internal Medicine; ATTEND Hospitalist
PROC: 4A033R1 Measurement of Arterial Saturation, Peripheral, Percutaneous Approach (ICD-10-PCS; principal; 2019-04-30)
PROC: 0J083ZZ Alteration of Abdomen Subcutaneous Tissue and Fascia, Percutaneous Approach (ICD-10-PCS; 2019-04-30)
DX: A41.9 Sepsis, unspecified organism (principal); J69.0 Pneumonitis due to inhalation of food and vomit; E66.2 Morbid (severe) obesity with alveolar hypoventilation; N17.9 Acute kidney failure, unspecified; D50.0 Iron deficiency anemia secondary to blood loss (chronic); Z79.899 Other long term (current) drug therapy; Z68.41 Body mass index [BMI] 40.0-44.9, adult; Z82.49 Family history of ischemic heart disease and other diseases of the circulatory system; Z91.011 Allergy to milk products
CPT/HCPCS: 36415; 36600; 71045; 71275; 80048; 80053; 81001; 82140; 82803; 83036; 83615; 85007; 85025; 85379; 85652; 87040; 87075; 87116; 88305; 93005; 93010; 94760; G0378; J0171; J0690; J1100; J1170; J1650; J1956; J2250; J2370; J2405; J2704; J2710; J2800; J3010; J7030; J7040; J7050; J7120; Q9967